=== PATIENT | male | born 1975 | race Caucasian/White ===

== ENCOUNTER 2024-06-25 10:46 | Emergency (ER) | payer BC, SELFPAY ==
[2024-06-25 10:52] VITALS: BP 163/86; PULSE 74; RESP 16; TEMP 36.5; O2SAT 94; BMI 28.7
[2024-06-25] MEDS: ondansetron hcl ODT 4 mg Tab PO (11:33)
[2024-06-25] MEDS: ketorolac 60 mg/2 mL INJ IM (11:33)
[2024-06-25] MEDS: morphine 4 mg/mL SDV 1 mL 10 MG IM (11:33)
--- NOTE | 2024-06-25 11:45 | ED_ITS ---
HPI - Back Pain/Injury General: Chief Complaint: Back Pain/Injury Stated Complaint: Lower back pain Time Seen by Provider: 06/25/24 10:56 History of Present Illness: This patient is a 48-year-old white male who presents to the emergency department complaining of low back pain. He states this started about a week ago. No recent injury. He states he did injure his back about 20 years ago and had an MRI back then which showed some disc disease. States has had some intermittent low back pain since then. Patient states he saw his primary care provider during this episode and was placed on a muscle relaxer and prednisone. He states this is not helping. He had been taking ibuprofen as well. There is no radiation of pain down the legs. No bowel or bladder dysfunction. Related Data Home Medications ?Medication ?Instructions ?Recorded ?Confirmed [id number] 3.5 1 drp ophthalmic (eye) BID 06/25/24 06/25/24 mg/mL-10,000 unit/mL-0.1% eye drops prednisone 20 mg tablet See Rx Instructions .Route . COMPLEX 06/25/24 06/25/24 tizanidine 4 mg tablet 4 mg PO Q4H 06/25/24 5 Previous Rx's ?Medication ?Instructions ?Recorded hydrocodone 5 mg-acetaminophen 325 1 - 2 tab PO Q6H OK N pain #30 tabs 06/25/24 mg tablet Allergies Allergy/AdvReac Type Severity Reaction Status Date / Time Penicillins Allergy ALGY-Rash Verified 06/25/24 10:54 Review of Systems General: Reports: 10 or more systems reviewed and unremarkable except in HPI and below Musc: Reports: back pain Physical Exam Const: COMMON NORMALS: no acute distress, patient oriented x3 and no limitations GENERAL APPEARANCE: cooperative and comfortable HENMT: COMMON NORMALS: normocephalic, atraumatic, Normal nasal mucous membranes and turbinates present, moist oral mucous membranes and oropharynx normal HEAD & SCALP: normal to inspection, normocephalic and atraumatic FACE & SINUS: normal facial exam NOSE: Normal nasal mucous membranes and turbinates present Eye: COMMON NORMALS: Equal, round and reactive pupils present, EOMs intact bilaterally and conjunctivae normal GENERAL EYE: appearance normal, both eyes and all related structures CONJUNCTIVA: Yes conjunctivae normal PUPIL: Yes Equal, round and reactive pupils present Neck/C-Spine: COMMON NORMALS: supple and no JVD Chest: COMMONS NORMALS: normal inspection of the chest Resp: COMMON NORMALS: normal respiratory effort and clear to auscultation bilaterally AUSCULTATION: clear to auscultation bilaterally Cardio: COMMON NORMALS: no JVD, regular rate, regular rhythm, No gallops present (Cardio), No murmurs present (Cardio) and No rub (Cardio) RATE: regular rate RHYTHM: regular rhythm GI: COMMON NORMALS: Normal to inspection, nondistended, normoactive bowel sounds present, Soft to palpation and non-tender AUSCULTATION: Yes normoactive bowel sounds PALPATION: Yes Soft to palpation : COMMON NORMALS: Yes no CVA tenderness BLADDER/KIDNEY EXAM: Yes no CVA tenderness Back/Pelvis: COMMON NORMALS: no CVA tenderness and thoracic and lumbar spine normal to inspection GENERAL BACK: Yes tenderness LUMBAR SPINE/LOWER BACK: Yes lumbar spinal tenderness Extremity: COMMON NORMALS: normal to inspection Neuro: COMMON NORMALS: patient oriented x3 and CN's II-XII intact bilaterally Psych: COMMON NORMALS: mental status grossly normal, Normal thought process present and cooperative THOUGHT PROCESS: Normal thought process present Skin: COMMON NORMALS: no rashes or lesions noted, turgor normal and no jaundice GENERAL SKIN EXAM: no rashes or lesions noted and turgor normal Course Vital Signs: Vital signs: Vital Signs Temperature 97.7 F 06/25/24 10:52 Pulse Rate 74 06/25/24 10:52 Respiratory Rate 16 06/25/24 10:52 Blood Pressure 163/86 06/25/24 10:52 Pulse Oximetry 94 06/25/24 10:52 Oxygen Delivery Me thod Room Air 06/25/24 10:52 MDM - Back Pain/Injury Medical Decision Making Patient was given injections of Toradol and morphine in the emergency department for his pain. I did prescribe hydrocodone for use at home. I recommended he continue the muscle relaxers and steroids. Recommended he follow-up with his primary care provider soon as possible for ongoing management. He may need an MRI of his lumbar spine. He was discharged in stable condition. No radiology studies performed this visit Discharge Plan Discharge Patient Disposition: Home Clinical Impression: Low back pain Qualifiers: Chronicity: acute Back pain laterality: bilateral Sciatica presence: without sciatica Qualified Code(s): M54.50 - Low back pain, unspecified Condition: Stable Prescriptions: New hydrocodone-acetaminophen 5-325 mg tablet 1 - 2 tab PO Q6H PRN (Reason: pain) Qty: 30 0RF No Action tizanidine 4 mg tablet 4 mg PO Q4H prednisone 20 mg tablet See Rx Instructions .ROUTE .COMPLEX Rx Instructions: as directed neomycin-polymyxin B-dexameth 3.5mg/mL-10,000 unit/mL-0.1 % drops,suspension 1 drp ophthalmic (eye) BID Discharge Orders: Discharge ED (Routine); Ordered 06/25/24 Ordered By: Harinder Armstrong Patient Instructions: Opioid Safety, Pain Management Activity Restrictions/Additional Instructions: 0512 Follow-up with your primary care provider soon as possible for ongoing management. Print Language: Citizen Of [place] Coding Level of Care Code ED [employer] for Tavon Castro
[2024-06-25 11:46] VITALS: BP 151/76; PULSE 81; O2SAT 98
== END 2024-06-25 11:47 | disposition home or self-care (01) ==
PROVIDERS: Emergency Provider Emergency Medicine
DX: M54.50 Low back pain, unspecified (principal)
CPT/HCPCS: 96372; 99284; J1885; J2270; Q0162